=== PATIENT | female | born 1935 | race Caucasian/White ===

== ENCOUNTER → 2019-04-16 | Outpatient (CLI) | payer OTHER | LOC: HYPER 04-01 11:36 | DX: S81.802A Unspecified open wound, left lower leg, initial encounter (principal); S81.801A Unspecified open wound, right lower leg, initial encounter; M79.661 Pain in right lower leg; M79.662 Pain in left lower leg; I87.2 Venous insufficiency (chronic) (peripheral); M19.90 Unspecified osteoarthritis, unspecified site; I89.0 Lymphedema, not elsewhere classified; G60.3 Idiopathic progressive neuropathy; R73.9 Hyperglycemia, unspecified; M81.0 Age-related osteoporosis without current pathological fracture; F41.9 Anxiety disorder, unspecified; Z90.49 Acquired absence of other specified parts of digestive tract; X58.XXXA Exposure to other specified factors, initial encounter; Y93.89 Activity, other specified; Y92.89 Other specified places as the place of occurrence of the external cause; Y99.8 Other external cause status ==

== ENCOUNTER → 2019-05-07 | Outpatient (CLI) | payer OTHER | LOC: HYPER 06:20 | DX: I89.0 Lymphedema, not elsewhere classified (principal); I87.2 Venous insufficiency (chronic) (peripheral); G60.3 Idiopathic progressive neuropathy; M81.0 Age-related osteoporosis without current pathological fracture; R73.9 Hyperglycemia, unspecified; R60.0 Localized edema; F41.9 Anxiety disorder, unspecified ==

== ENCOUNTER → 2019-05-29 | Outpatient (CLI) | payer OTHER | LOC: HYPER 09:45 | DX: I89.0 Lymphedema, not elsewhere classified (principal); I87.2 Venous insufficiency (chronic) (peripheral); M81.0 Age-related osteoporosis without current pathological fracture; R60.0 Localized edema; G60.3 Idiopathic progressive neuropathy; R73.9 Hyperglycemia, unspecified; F41.9 Anxiety disorder, unspecified ==

== ENCOUNTER → 2019-07-15 | Outpatient (CLI) | payer OTHER | LOC: HYPER 09:56 | DX: I89.0 Lymphedema, not elsewhere classified (principal); I87.2 Venous insufficiency (chronic) (peripheral); R60.0 Localized edema; R73.9 Hyperglycemia, unspecified; G60.3 Idiopathic progressive neuropathy; G62.9 Polyneuropathy, unspecified; K21.9 Gastro-esophageal reflux disease without esophagitis; M81.0 Age-related osteoporosis without current pathological fracture; M19.90 Unspecified osteoarthritis, unspecified site; F41.9 Anxiety disorder, unspecified ==